=== PATIENT | female | born 1955 | race Two or more races ===

== ENCOUNTER 2024-11-28 12:13 | Emergency (ER) | payer OTHER ==
[~2024-11-28] VITALS: Ht 149.9 cm; Wt 64.4 kg
[2024-11-28] MEDS ORDERED: LOSARTAN POTASS50 MG PO (12:54)
[2024-11-28] MEDS ORDERED: GLIMEPIRIDE2 M1 PO (12:54)
[2024-11-28] MEDS ORDERED: SYNTHROID75 MCG PO (12:54)
[2024-11-28] MEDS ORDERED: ROSUVASTATIN CA10 MG PO (12:55)
[2024-11-28] MEDS ORDERED: PANTOPRAZOLE SO40 MG PO (12:56)
[2024-11-28] MEDS ORDERED: NORVASC2.5 MG PO (12:56)
[2024-11-28] MEDS ORDERED: RESTORIL30 MG PO (12:56)
[2024-11-28] MEDS ORDERED: VITAMIN D3250 MCG PO (12:56)
[2024-11-28] MEDS ORDERED: FARXIGA10 MG PO (12:56)
[2024-11-28] MEDS ORDERED: CARVEDILOL25 M1 PO (12:56)
[2024-11-28] MEDS ORDERED: KETOROLAC TROMETHAMINE 30 MG VIAL IV ONE (13:15)
[2024-11-28] MEDS ORDERED: FAMOtidine 10 MG/ML (4ML VIAL) IV ONE (13:15)
[2024-11-28] MEDS ORDERED: 0.9 % SODIUM CHLORIDE 1,000 ML IV ONE (13:15)
[2024-11-28 13:44] LABS: BASO % 0.5 % (0.1-1.2); EOS # 0.24 (0.04-0.54); EOS % 3.0 % (0.7-7.0); LYMPH # 2.70 (1.18-3.74); LYMPH % 33.6 % (19.3-53.1); MEAN PLATELET VOLUME 9.00 fl (9.4-12.4); MONO # 0.56 (0.24-0.82); MONO % 7.0 % (4.7-12.5); NEUT # 4.48 (1.56-6.13); NEUT % 55.7 % (34.0-71.1); RED CELL DISTRIBUTION WIDTH 14.3 % (11.6-14.4)
[2024-11-28 14:10] LABS: INR 1.08
[2024-11-28 14:14] LABS: ALT/SGPT 24.0 U/L (12-78); AST/SGOT 16.0 U/L (15-37); BILIRUBIN TOTAL 0.89 mg/dL (0.3-1.2); BUN CREA RATIO 16.0 (7.0-25.0); CREATININE SERUM 1.48 mg/dL (0.55-1.02); GFR 34.77; GLOBULINA 3.8 G/DL (2.4-3.5); GLUCOSE FASTING 93.0 mg/dL (65-100); OSMOLALITY SERUM 290.0 MOSM/KG (275-295)
[2024-11-28 14:20] LABS: URINE APPEARANCE Cloudy; URINE BILIRRUBIN Negative (NEGATIVE); URINE BLOOD Negative; URINE COLOR Yellow; URINE KETONE Negative (NEGATIVE); URINE LEUKOCYTE Negative; URINE NITRATE Negative; URINE PROTEIN Negative (NEGATIVE); URINE UROBILINOGEN 0.2 E.U./dl
[2024-11-28 14:24] LABS: URINE BACTERIA 53.9 uL (0.0-1933); URINE EPITHELIAL CELLS 40.7 uL (0.0-38.8); URINE WBC 7.3 uL (0.0-23.2)
[2024-11-28 14:49] LABS: URINE CAST 0.29 uL (0.0-1.40); URINE GLUCOSE >=1000 MG/DL (NEGATIVE); URINE RBC 0.5 uL (0.0-20.8)
[2024-11-28] MEDS ORDERED: DICY20TA PO (14:56)
[2024-11-28] MEDS ORDERED: PROTONIX40 MG PO (14:56)
== END 2024-11-28 15:22 | disposition home or self-care (01) ==
LOC: ER 12:22
PROVIDERS: General Practice
DX: R10.9 Unspecified abdominal pain (principal); Z85.038 Personal history of other malignant neoplasm of large intestine; E03.8 Other specified hypothyroidism; I12.9 Hypertensive chronic kidney disease with stage 1 through stage 4 chronic kidney disease, or unspecified chronic kidney disease; N18.9 Chronic kidney disease, unspecified; E11.9 Type 2 diabetes mellitus without complications; Z79.84 Long term (current) use of oral hypoglycemic drugs
CPT/HCPCS: 36415; 74176; 96365 ×2; 99284; J1885; J3490; J7030